=== PATIENT | male | born 1995 | race Caucasian/White ===

== ENCOUNTER 2019-05-13 20:35 | Emergency (ER) | payer MEDICAID ==
[~2019-05-13] VITALS: Ht 185.4 cm; Wt 90.7 kg
[2019-05-13 20:39] VITALS: BP 126/90
--- NOTE | 2019-05-13 20:39 | NUR ---
TO BED # 04 AMBULATORY
--- NOTE | 2019-05-13 20:39 | NUR ---
VISUAL ACUITY BOTH EYE 20/20 , LEFT EYE 20/20, RT EYE 20/25
[2019-05-13] MEDS ORDERED: FLUORESCEIN OPTH STRIP 0.6 MG OP ONE ×2 (21:05→21:20)
[2019-05-13] MEDS ORDERED: TETRACAINE HCL/PF 0.5% OPTH 4 ML BTL OP ONE (21:05)
[2019-05-13] MEDS ORDERED: IBUPROFEN 600 MG TAB PO ONE (21:10)
--- NOTE | 2019-05-13 21:10 | NUR ---
24/M PRESENTS TO ED WITH SON, C/O "HEAVINESS" ON BL EYES, STARTED AFTER WAKING UP 5 DAYS AGO. PT ALSO REPORTS CONSTANT LIGHTHEADEDNESS. REPORTS HEADACHE X2 DAYS. AOX4, AMBULATORY WITH STEADY GAIT, PERRLA 3MM, MILD SCLERA REDNESS AND ITCHINESS ON R EYE, SKIN NORMAL WARM AND DRY, RR EVEN AND UNLABORED. DENIES MED HX OR RX. OTC SALINE EYE DROPS
--- NOTE | 2019-05-13 21:10 | NUR ---
REPORTS BLURRY VISION WHEN PERFORMING SNELLEN TEST. DENIES SEEING FLOATERS
[2019-05-13 22:10] VITALS: BP 119/63
--- NOTE | 2019-05-13 22:10 | NUR ---
Patient discharged with v/s stable. Written and verbal after care instructions given and explained. Patient alert, oriented and verbalized understanding of instructions. Ambulatory with steady gait. All questions addressed prior to discharge. ID band removed. Patient advised to follow up with PMD. Rx of POLYTRIM, IBUPROFEN given. Patient educated on indication of medication including possible reaction and side effects. Opportunity to ask questions provided and answered.
== END 2019-05-13 22:10 | disposition home or self-care (01) ==
LOC: MED 20:35
DX: R51 Headache (principal); L29.9 Pruritus, unspecified
CPT/HCPCS: 99284

== ENCOUNTER 2020-01-13 01:40 | Emergency (ER) | payer SELFPAY ==
[~2020-01-13] VITALS: Ht 185.4 cm; Wt 90.7 kg
[2020-01-13 01:44] VITALS: BP 123/80
--- NOTE | 2020-01-13 01:44 | NUR ---
TO BED # 11 AMBULATORY
--- NOTE | 2020-01-13 02:00 | NUR ---
Dr. Dailey examining patient.
--- NOTE | 2020-01-13 02:00 | NUR ---
24 YEAR OLD MALE COMPLAINS OF UPPER ABDOMINAL PAIN X 4 HOURS. PATIENT BOWEL SOUNDS ACTIVE X4, TENDER IN UPPER QUADRANT, NONDISTENDED, SOFT. PATIENT HAS NAUSEA, DENIES VOMITTING. PATIENT AOX4, BREATHING EVEN AND UNLABORED, SKIN WARM AND DRY. BED IN LOWEST POSITION, LOCKED, BED RAIL UPX1. ERMD AT BEDSIDE. PMH - DENIES ALLERGIES - NKA
[2020-01-13] MEDS ORDERED: KETOROLAC 30 MG/ML VIAL IVP ONE (02:05)
[2020-01-13] MEDS ORDERED: ONDANSETRON 4 MG/2 ML VIAL IVP ONE (02:05)
[2020-01-13] MEDS ORDERED: NACL 0.9% 1,000 ML IV ONE (02:05)
[2020-01-13 02:16] LABS: BASOPHILS % (AUTO) 0.1 % (0.0-2.0); EOSINOPHILS # (AUTO) 0.1 K/uL (0-0.4); EOSINOPHILS % (AUTO) 0.9 % (0.0-4.0); HEMATOCRIT 37.6 % (36-52); LYMPHOCYTES # (AUTO) 1.9 K/uL (2.0-11.5); LYMPHOCYTES % (AUTO) 17.7 % (20.5-51.1); MEAN CORPUSCULAR HEMOGLOBIN 31 pg (27-31); MEAN CORPUSCULAR HGB CONC 35 g/dL (33-37); MEAN CORPUSCULAR VOLUME 88.8 fL (80-94); MONOCYTES # (AUTO) 0.7 K/uL (0.8-1.0); MONOCYTES % (AUTO) 6.3 % (1.7-9.3); PLATELET COUNT (AUTO) 222 K/uL (140-450); RED BLOOD CELL COUNT(AUTO) 4.24 MIL/uL (4.20-6.10); RED CELL DISTRIBUTION WIDTH 13.1 % (11.6-13.7); WHITE BLOOD COUNT (AUTO) 10.7 K/uL (4.8-10.8)
[2020-01-13 02:36] LABS: ANION GAP 8.1 (8-16); CARBON DIOXIDE 31.2 mmol/L (21-32); CREATININE 0.9 mg/dL (0.6-1.3); POTASSIUM 3.3 mmol/L (3.5-5.1); TOTAL BILIRUBIN 0.2 mg/dL (0.0-1.0)
[2020-01-13] MEDS ORDERED: POTASSIUM CHLORIDE 10 MEQ TABER PO ONE (02:45)
--- NOTE | 2020-01-13 03:29 | NUR ---
Patient discharged with v/s stable. Written and verbal after care instructions given and explained. Patient verbalized understanding. Ambulatory with steady gait. All questions addressed prior to discharge. Advised to follow up with PMD.
[2020-01-13 03:30] VITALS: BP 122/80
--- NOTE | 2020-01-13 03:45 | NUR ---
PATIENT ALERT AND AWAKE, BREATHING EVEN AND UNLABORED
== END 2020-01-13 03:29 | disposition home or self-care (01) ==
LOC: MED 01:40
DX: E87.6 Hypokalemia (principal)
CPT/HCPCS: 36415; 80053; 83690; 85025; 96374; 96375; 99283; J1885; J2405; J7030